=== PATIENT | female | born 1970 | race Caucasian/White ===

== ENCOUNTER 2024-05-22 08:55 | Emergency (ER) | payer OTHER ==
--- OUTSIDE RECORDS SUMMARY | 2024-05-22 08:58 | XMS REPORT | Continuity of Care Document ---
Author Name Unknown Address [address] [facility] [address] [place] [address] [facility] thconnect Address [address] [facility] [address] [place] [address] Care Team Providers Care Net Coordinator Name Role Phone PCP, PATIENT DOES NOT HAVE A Primary Care Physic tamara Unavailable JOSUE LINARES Attending Clinician Unavailable Josue Linares MD Attending Clinician [phone] MARANDA SUBRAMANIAN Attending Clinician Unavailable JOSUE LINARES Admitting Clinician Unavailable MARANDA SUBRAMANIAN Admitting Clinician Unavailable Payers Payer Name Policy Type Policy Number Effective Date Expirati on Date Source [employer] [id number] 2023 00:00:00 Allergies, Adverse Reactions, Alerts Allergy Name Allergy Type Status Severity Reaction(s) Onset Date Inactive Date Treating Clinician Comments Source ACETAMIN OPHEN DRUG INGREDI Active Rash 02-14 00:00: 00 [facility] Acetamin ophen Propensi ty to adverse reaction s Active Rash 02-14 00:00: 00 [facility] Social History Social Habit Start Date Stop Date Quantity Comments Source Sexual orientation U [facility] Sex Assigned At 1970 00:00:00 1970 00:00:00 [facility] Smoking Status Start Date Stop Date Source Tobacco smoking consumption unknown [facility] Medications Ordered Medication Name Filled Medication Name Start Date Stop Date Current Medication? Ordering Clinician Indication Dosage Frequency Signature (SIG) Comments Components Source aspirin chewable tablet 324 mg 06-20 04:15: 00 06-20 03:21 :00 No 324mg 324 mg, Oral, ONCE, 1 dose, On Thu06/19/23 at 2215, [facility] famotidine (PEPCID (PF)) injection 20 mg 06-20 04:15: 00 06-20 03:22 :00 No 20mg 20 mg, Slow IV Push, ONCE, 1 dose, On Thu06/19/23 at 2215, [facility] ketorolac (TORADOL) injection 15 mg 06-20 04:15: 00 06-20 03:24 :00 No 15mg 15 mg, Slow IV Push, ONCE, 1 dose, On Thu06/19/23 at 2215, [facility] maalox:diph enhydrAMINE :lidocaine 2 % viscous 1:1:1 ([facility]) oral suspension 15 mL 06-20 03:15: 00 06-20 03:21 :00 No 15mL 15 mL, Oral, ONCE, 1 dose, On Thu06/19/23 at 2115, Routine [facility] atorvastati n 20 mg tablet 06-19 00:00: 00 07-19 05:59 :00 No [id number] 20mg Take 1 tablet by mouth at bedtime for 30 days. [facility] losartan 50 mg tablet 06-19 00:00: 00 07-19 05:59 :00 No [id number] 50mg Take 1 tablet by mouth in the morning for 30 days. [facility] busPIRone 10 mg tablet 06-19 00:00: 00 07-19 05:59 :00 No [id number] 10mg Take 1 tablet by mouth in the morning and 1 tablet in the evening. Do all this for 30 days. [facility] famotidine 20 mg tablet 06-19 00:00: 00 07-05 05:59 :00 No [id number] 20mg Take 1 tablet by mouth in the morning and 1 tablet in the evening. Do all this for 15 days. [facility] Dextrometho rphan HBr 5 mg/5 mL Syrp 2022-05 00:00: 00 Yes [id number] 15mL Take 15 mL by mouth every 4 (four) hours as needed for Cough. [facility] methylPREDN ISolone 4 mg tablets 2022-05 00:00: 00 Yes [id number] Take by mouth SEE-INSTRU CTIONS. follow package directions [facility] LISINOPRIL ORAL 02-14 19:41: 20 Yes Take by mouth 2 (two) times daily. [facility] HYDROcodone -acetaminop hen (NORCO) 10-325 mg tablet 02-14 19:41: 20 Yes 1{tbl} Take 1 tablet by mouth every 8 (eight) hours as needed for Pain unrelieved by non-narcot ic analgesics . [facility] citalopram (CELEXA) 20 mg tablet 02-14 19:39: 48 Yes 20mg Take 20 mg by mouth daily. [facility] clonazePAM (KLONOPIN) 0.5 mg tablet 02-14 19:39: 17 Yes .5mg Take 0.5 mg by mouth 2 (two) times daily. [facility] proMETHazin e (PHENERGAN) 25 mg tablet 02-14 00:00: 00 Yes 25mg Take 1 tablet by mouth every 6 (six) hours as needed for Nausea and Vomiting (N/V). [facility] pentazocine -naloxone (TALWIN NX) 50-0.5 mg tablet 02-14 00:00: 00 Yes 1{tbl} Take 1 tablet by mouth every 4 (four) hours as needed for Pain for up to 20 doses. [facility] Vital Signs Vital Name Observation Time Observation Value Comments [facility]oe[facility] Systolic blood pressure 2023-06-20 05:52:46 159 mm[Hg] [facility] Diastolic blood pressure 2023-06-20 05:52:46 88 mm[Hg] [facility] Heart rate 2023-06-20 05:52:46 67 /min [facility] Respiratory rate 2023-06-20 05:52:46 18 /min [facility] Oxygen saturation in Arterial blood by Pulse oximetry 2023-06-20 05:52:46 99 /min [facility] Body temperature 2023-06-20 04:33:04 36.72 Melinda [facility] Body height 2023-06-20 02:30:00 149.9 cm [facility] Body weight 2023-06-20 02:30:00 44.453 kg [facility] BMI 2023-06-20 02:30:00 19.79 kg/m2 [facility] Systolic blood pressure 2023-04-04 21:31:00 150 mm[Hg] [facility] Diastolic blood pressure 2023-04-04 21:31:00 82 mm[Hg] [facility] Heart rate 2023-04-04 21:31:00 69 /min [facility] Body temperature 2023-04-04 21:31:00 36.72 Melinda [facility] Respiratory rate 2023-04-04 21:31:00 14 /min [facility] Body height 2023-04-04 21:31:00 149.9 cm [facility] Body weight 2023-04-04 21:31:00 44.453 kg [facility] BMI 2023-04-04 21:31:00 19.79 kg/m2 [facility] Oxygen saturation in Arterial blood by Pulse oximetry 2023-04-04 21:31:00 100 /min [facility] Procedures Procedure Date / Time Performed Performing Clinicia n Source TROPONIN I 2023-06-20 05:09:00 Josue Linares [facility] D-DIMER 2023-06-20 05:09:00 Josue Linares [facility] XR CHEST 2 VW 2023-06-20 03:19:00 Josue Linares [facility] LIPASE 2023-06-20 03:13:00 Josue Linares [facility] TROPONIN I 2023-06-20 03:13:00 Josue Linares [facility] HEPATIC FUNCTION PANEL (25249) (ALB,T.PRO,BILI T,BU/BC,ALT,AST,ALK PHOS) 2023-06-20 03:13:00 Josue Linares [facility] BASIC METABOLIC PANEL (NA, K, CL, CO2, GLUCOSE, BUN, CREATININE, CA) 2023-06-20 03:13:00 Josue Linares [facility] ETHANOL 2023-06-20 03:13:00 Josue Linares [facility] CBC WITH DIFF 2023-06-20 03:13:00 Josue Linares [facility] N-TERMINAL PRO-BNP 2023-06-20 03:13:00 Josue Linares [facility] ASSIGNMENT OF BENEFITS 2023-04-04 22:28:34 Docto r Unassigned, [place] [facility] BASIC METABOLIC PANEL (NA, K, CL, CO2, GLUCOSE, BUN, CREATININE, CA) 2023-04-04 21:48:00 Maranda Subramanian [facility] CBC WITH DIFF 2023-04-04 21:48:00 Maranda Subramanian [facility] RAPID STREP SCREEN FOR GROUP A 2023-04-04 21:48:00 Maranda Subramanian [facility] RAPID INFLUENZA A/B 2023-04-04 21:48:00 Manisha Subramanian [facility] POCT TEST 2023-04-04 21:48:00 Manisha Subramanian [facility] COVID-19 (ID NOW RAPID TESTING) 2023-04-04 21:48:00 Maranda Subramanian [facility] CONSENT/REFUSAL FOR DIAGNOSIS AND TREATMENT 2023-04-04 21:23:26 Doctor Unassigned, [place] [facility] Encounters Start Date/Time End Date/Time Encounter Type Admission Type Attending [facility] Facility Care Department Encounter ID Source 2023-06-19 20:33:00 2023-06-20 00:25:00 Emergency X JOSUE LINARES [facility] ERT [id number] [facility] 2023-06-19 20:33:00 2023-06-20 00:25:00 Emergency Josue Linares [facility] [id number] [facility] 2023-04-04 15:33:00 2023-04-04 17:32:00 Emergency X MARILYNN MARANDA [facility] ERT [id number] [facility] 2023-04-04 15:33:00 2023-04-04 17:32:00 Emergency MarilynnJoanMaranda [facility] [id number] [facility] Results Test Description Test Time Test Comments Results Result Comments Source XR CHEST 2 VW 03:38:30 Ordering physician:JOSUE LINARES CLINICAL HISTORY: ? ?chest pain TECHNIQUE: 2 views of the chest COMPARISON: ?None FINDINGS: No focal infiltrate, pleural effusion, or pneumothorax. Thecardiomediastinal silhouette is normal. The upper abdomen is unremarkable.No acute osseous abnormality. [facility]
--- NOTE | 2024-05-22 09:35 | EDPHYS ---
Physician Documentation [facility] Name: Lili Ryan Age: 53 yrs Sex: Female : 1970 Arrival Date: 05/22/2024 Time: 08:55 Bed 15 Private MD: MARICHUY Physician Grzegorz Gaitan HPI: 05/22 09:38 This 53 yrs old Female presents to ER via Ambulatory with complaints of Mouth dr5 Problem. 09:38 The patient presents with broken tooth/teeth, pain, redness, swelling. The problem is dr5 located in the upper left cuspid, upper left first bicuspid, upper left second bicuspid and upper left first molar. 09:38 Onset: The symptoms/episode began/occurred 3 day(s) ago. Patient is a 53-year-old dr5 female with hypertension, anxiety, seizure disorder coming in with 3 days of dental pain. Patient reports she went to the dentist but they were unable to work on her teeth due to her uncontrolled hypertension. Patient currently has medications for losartan and carvedilol. Patient has been taking 60 mg of ibuprofen with no pain relief.. Historical: - Allergies: 09:20 Tylenol; ha1 - PMHx: 09:20 Hypertensive disorder; Anxiety; Depressive disorder; Seizure; ha1 - Immunization history:: Adult Immunizations up to date. - Infectious Disease History:: Denies. - Social history:: Smoking status: Patient reports the use of cigarette tobacco products, unknown amount. ROS: 09:38 Constitutional: as per hpi dr5 Exam: 09:38 Constitutional: This is a well developed, well nourished patient who is awake, alert, dr5 and in no acute distress. Head/Face: Normocephalic, atraumatic. Eyes: Pupils equal round and reactive to light, extra-ocular motions intact. Lids and lashes normal. Conjunctiva and sclera are non-icteric and not injected. Cornea within normal limits. Periorbital areas with no swelling, redness, or edema. Chest/axilla: Normal chest wall appearance and motion. Nontender with no deformity. No lesions are appreciated. Cardiovascular: Regular rate and rhythm with a normal S1 and S2. Normal PMI, no JVD. No pulse deficits. Respiratory: Lungs have equal breath sounds bilaterally, clear to auscultation. No rales, rhonchi or wheezes noted. No increased work of breathing, no retractions or nasal flaring. Back: No spinal tenderness. No costovertebral tenderness. Full range of motion. MS/ Extremity: Pulses equal, no cyanosis. Neurovascular intact. Full, normal range of motion. Neuro: Awake and alert, GCS 15, oriented to person, place, time, and situation. Cranial nerves II-XII grossly intact. Motor strength 5/5 in all extremities. Sensory grossly intact. Cerebellar exam normal. Normal gait. 09:38 ENT: Mouth: Lips: normal, Oral mucosa: normal, Gums: normal with healthy appearance, reddened, Tongue: is normal, abscess, that is minimal, of the upper left cuspid, upper left first bicuspid, upper left second bicuspid, upper left first molar and upper left second molar, Multiple dental caries noted, rotting teeth. No trismus. Patient is handling secretions without difficulty. No trismus noted. Speaking in full sentences., Vital Signs: 09:19 BP 161 / 90; Pulse 80; Resp 16; Temp 98; Pulse Ox 100% ; ha1 MDM: 09:04 Medical Screening Exam initiated dr5 :38 Differential diagnosis: dental caries, gingivitis, dental abscess. Data reviewed: vital dr5 signs, nurses notes. Historians other than the Patient: Parent: Father at Bedside. Care significantly affected by the following chronic conditions: Hypertension, Seizure Disorder. Care significantly affected by the following Social Determinants of Health: Poor access to healthcare and/or lack of insurance, Poor access to transportation, Problems related to employment. Counseling: I had a detailed discussion with the patient and/or guardian regarding the historical points, exam findings, and any diagnostic results supporting the discharge/admit diagnosis, the presence of at least one elevated blood pressure reading (>120/80) during this emergency department visit, the need for outpatient follow up, for definitive care, a dentist, a family practitioner, to return to the emergency department if symptoms worsen or persist or if there are any questions or concerns that arise at home. ED course: Patient given 1 tramadol in ER. Will send patient home with Augmentin and pain medication. Recommended patient take blood pressure medications and pain medication prior to go to dentist for blood pressure control so they can work on her teeth without issues. Patient verbalized understanding and all questions answered.. Administered Medications: 10:11 Drug: traMADol PO 50 mg PO once Route: PO; kc6 10:25 Follow up: Response: No adverse reaction kc6 10:11 Drug: Ketorolac IM 30 mg IM once Route: IM; Site: right deltoid; kc6 10:25 Follow up: Response: No adverse reaction kc6 Disposition Summary: 05/22/24 09:34 Discharge Ordered Notes: Location: Home dr5 Condition: Stable dr5 Diagnosis - Dental caries, unspecified dr5 Followup: dr5 - With: Emergency Department - When: As needed - Reason: Worsening of condition Followup: dr5 - With: Private Physician - When: 1 - 2 days - Reason: Recheck today's complaints, Continuance of care, Re-evaluation by your physician Discharge Instructions: - Discharge Summary Sheet dr5 - Dental Abscess dr5 - Dental Caries, Adult dr5 Forms: - Medication Reconciliation Form dr5 - Antibiotic Education dr5 - Prescription Opioid Use dr5 - Patient Portal Instructions dr5 - Leadership Thank You Letter dr5 Prescriptions: - Augmentin 875-125 mg Oral Tablet - take 1 tablet ORAL route every 12 hours for 10 days; 20 tablet; Refills: 0, dr5 Product Selection Permitted - Tramadol 50 mg Oral Tablet - take 1 tablet ORAL route every 8 hours as needed; 12 tablet; Refills: 0, dr5 Product Selection Permitted Addendum: 05/24/2024 15:34 Co-signature as Attending Physician, Grzegorz Gaitan MD I agree with the assessment and c spencer plan of care. Signatures: Grzegorz Gaitan MD MD cha Ayala, Heidy, RN RN ha1 Wendy Moreno RN RN kc6 Shane Esparza, WORKDAY FINANCIALS CONSULTANT-C WORKDAY FINANCIALS CONSULTANT-Cdr5
--- NOTE | 2024-05-22 09:35 | ER ---
Nurse's Notes [facility] Name: Lili Ryan Age: 53 yrs Sex: Female : 1970 Arrival Date: 05/22/2024 Time: 08:55 Bed 15 Private MD: Diagnosis: Dental caries, unspecified Presentation: 05/22 09:19 Chief complaint: Patient states: 3 DAYS LEFT TOOTH PAIN. SEEN AT DENTIST, BUT NO ha1 PROCEDURE 2/2 HTN. Coronavirus screen: At this time, the client does not indicate any symptoms associated with coronavirus-19. Ebola Screen: No symptoms or risks identified at this time. Initial Sepsis Screen: Does the patient meet any 2 criteria? No. Patient's initial sepsis screen is negative. Does the patient have a suspected source of infection? No. Patient's initial sepsis screen is negative. Risk Assessment: Do you want to hurt yourself or someone else? Patient reports no desire to harm self or others. Onset of symptoms is unknown. 09:19 Method Of Arrival: Ambulatory ha1 09:19 Acuity: HOLLEY 4 ha1 Triage Assessment: 09:20 General: Appears in no apparent distress. uncomfortable, Behavior is cooperative, ha1 appropriate for age, anxious. Pain: Complains of pain in face. Historical: - Allergies: 09:20 Tylenol; ha1 - PMHx: 09:20 Hypertensive disorder; Anxiety; Depressive disorder; Seizure; ha1 - Immunization history:: Adult Immunizations up to date. - Infectious Disease History:: Denies. - Social history:: Smoking status: Patient reports the use of cigarette tobacco products, unknown amount. Vital Signs: 09:19 BP 161 / 90; Pulse 80; Resp 16; Temp 98; Pulse Ox 100% ; ha1 ED Course: 09:00 Patient arrived in ED. sj2 09:01 Shane Esparza FNP-C [facility]. dr5 09:01 Grzegorz Gaitan MD is Attending Physician. dr5 09:20 Triage completed. ha1 09:21 Arm band placed on. ha1 10:05 Wendy Moreno RN is Primary Nurse. kc6 Administered Medications: 10:11 Drug: traMADol PO 50 mg PO once Route: PO; kc6 10:25 Follow up: Response: No adverse reaction kc6 10:11 Drug: Ketorolac IM 30 mg IM once Route: IM; Site: right deltoid; kc6 10:25 Follow up: Response: No adverse reaction kc6 Outcome: 09:34 Discharge ordered by . hreiberto 10:25 Discharged to home ambulatory, with family, kc6 10:25 Condition: good 10:25 Discharge instructions given to patient, Instructed on discharge instructions, follow up and referral plans. no drinking with medication, no driving heavy equipment, medication usage, Demonstrated understanding of instructions, follow-up care, medications, Prescriptions given X 2, 10:26 Patient left the ED. kc6 Signatures: Lindsay Moss RN RN ha1 Wendy Moreno RN RN kc6 Loyda Sorto Dustin, CONFERENCE SPECIALIST-C CONFERENCE SPECIALIST-Cdr5
[2024-05-22] MEDS ORDERED: TRAMADOL HCL 50 MG TAB ONE (10:06)
[2024-05-22] MEDS ORDERED: KETOROLAC 30 MG/ML INJ ONE (10:06)
[2024-05-22 10:42] VITALS: BP 161/90; TEMP 98; O2SAT 100
== END 2024-05-22 10:26 | disposition home or self-care (01) ==
LOC: ER 08:55
DX: K02.9 Dental caries, unspecified (principal)
CPT/HCPCS: 96372; 99284

== ENCOUNTER 2024-06-18 12:20 | Emergency (ER) | payer OTHER ==
--- OUTSIDE RECORDS SUMMARY | 2024-06-18 12:23 | XMS REPORT | Continuity of Care Document ---
Author Name Unknown Address [address] [facility] [place] [address] [facility] Address [address] [facility] [address] [place] [address] Care Team Providers Care Racing Driver Name Role Phone PCP, PATIENT DOES NOT HAVE A Primary Care Physic tamara Unavailable JOSUE LINARES Attending Clinician Unavailable Josue Linares MD Attending Clinician [phone] MARANDA SUBRAMANIAN Attending Clinician Unavailable JOSUE LINARES Admitting Clinician Unavailable MARANDA SUBRAMANIAN Admitting Clinician Unavailable Payers Payer Name Policy Type Policy Number Effective Date Expirati on Date Source [employer] [id number] 2023 00:00:00 Allergies, Adverse Reactions, Alerts Allergy Name Allergy Type Status Severity Reaction(s) Onset Date Inactive Date Treating Clinician Comments Source ACETAMIN OPHEN DRUG INGREDI Active Rash 02-14 00:00: 00 [facility] Acetamin ophen Propensi ty to adverse reaction s Active Rash 02-14 00:00: 00 [facility] Social History Social Habit Start Date Stop Date Quantity Comments Source Sexual orientation U [facility] Sex Assigned At 1970 00:00:00 1970 00:00:00 [facility] Smoking Status Start Date Stop Date Source Tobacco smoking consumption unknown [facility] Medications Ordered Medication Name Filled Medication Name Start Date Stop Date Current Medication? Ordering Clinician Indication Dosage Frequency Signature (SIG) Comments Components Source aspirin chewable tablet 324 mg 06-20 04:15: 00 06-20 03:21 :00 No 324mg 324 mg, Oral, ONCE, 1 dose, [facility]19[facility]23 [facility] 2215[facility] famot[facility] (PEPCID (PF[facility] injection 20 mg 06-20 04:15: 00 06-20 03:22 :00 No 20mg 20 mg, Slow IV Push, ONCE, 1 dose, On Thu06/19/23 at 2215, [facility] ketorolac (TORADOL) injection 15 mg 06-20 04:15: 00 06-20 03:24 :00 No 15mg 15 mg, Slow IV Push, ONCE, 1 dose, On Thu06/19/23 at 2215, [facility] maalox:diph enhydrAMINE :lidocaine 2 % viscous 1:1:1 (FIRST-MOUT HWASH BLM) oral suspension 15 mL 06-20 03:15: 00 06-20 03:21 :00 No 15mL 15 mL, Oral, ONCE, 1 dose, On Thu06/19/23 at 2115, Routine [facility] atorvastati n 20 mg tablet 06-19 00:00: 00 07-19 05:59 :00 No [id number] 20mg Take 1 tablet by mouth at bedtime for 30 days. [facility] losartan 50 mg tablet 06-19 00:00: 00 07-19 05:59 :00 No [id number] 50mg Take 1 tablet by mouth in the morning for 30 days. [facility] busPIRone 10 mg tablet 06-19 00:00: 00 07-19 05:59 :00 No [id number] 10mg Take 1 tablet by mouth in the morning and 1 tablet in the evening. Do all this for 30 days. [facility] famotidine 20 mg tablet 06-19 00:00: 00 07-05 05:59 :00 No [id number] 20mg Take 1 tablet by mouth in the morning and 1 tablet in the evening. Do all this for 15 days. [facility] Dextrometho rphan HBr 5 mg/5 mL Syrp 2022-05 00:00: 00 Yes [id number] 15mL Take 15 mL by mouth every 4 (four) hours as needed for Cough. [facility] methylPREDN ISolone 4 mg tablets 2022-05 00:00: 00 Yes [id number] Take by mouth SEE-INSTRU CTIONS. follow package directions [facility] LISINOPRIL ORAL 02-14 19:41: 20 Yes Take by mouth 2 (two) times daily. [facility] HYDROcodone -acetaminop hen (NORCO) 10-325 mg tablet 02-14 19:41: 20 Yes 1{tbl} Take 1 tablet by mouth every 8 (eight) hours as needed for Pain unrelieved by non-narcot ic analgesics . [facility] citalopram (CELEXA) 20 mg tablet 02-14 19:39: 48 Yes 20mg Take 20 mg by mouth daily. [facility] clonazePAM (KLONOPIN) 0.5 mg tablet 02-14 19:39: 17 Yes .5mg Take 0.5 mg by mouth 2 (two) times daily. [facility] proMETHazin e (PHENERGAN) 25 mg tablet 02-14 00:00: 00 Yes 25mg Take 1 tablet by mouth every 6 (six) hours as needed for Nausea and Vomiting (N/V). [facility] pentazocine -naloxone (TALWIN NX) 50-0.5 mg tablet 02-14 00:00: 00 Yes 1{tbl} Take 1 tablet by mouth every 4 (four) hours as needed for Pain for up to 20 doses. [facility] Vital Signs Vital Name Observation Time Observation Value Comments [facility]ley mattnj Systolic blood pressure 2023-06-20 05:52:46 159 mm[Hg] [facility] Diastolic blood pressure 2023-06-20 05:52:46 88 mm[Hg] [facility] Heart rate 2023-06-20 05:52:46 67 /min [facility] Respiratory rate 2023-06-20 05:52:46 18 /min [facility] Oxygen saturation in Arterial blood by Pulse oximetry 2023-06-20 05:52:46 99 /min [facility] Body temperature 2023-06-20 04:33:04 36.72 Melinda [facility] Body height 2023-06-20 02:30:00 149.9 cm [facility] Body weight 2023-06-20 02:30:00 44.453 kg [facility] BMI 2023-06-20 02:30:00 19.79 kg/m2 [facility] Systolic blood pressure 2023-04-04 21:31:00 150 mm[Hg] [facility] Diastolic blood pressure 2023-04-04 21:31:00 82 mm[Hg] [facility] Heart rate 2023-04-04 21:31:00 69 /min [facility] Body temperature 2023-04-04 21:31:00 36.72 Melinda [facility] Respiratory rate 2023-04-04 21:31:00 14 /min [facility] Body height 2023-04-04 21:31:00 149.9 cm [facility] Body weight 2023-04-04 21:31:00 44.453 kg [facility] BMI 2023-04-04 21:31:00 19.79 kg/m2 [facility] Oxygen saturation in Arterial blood by Pulse oximetry 2023-04-04 21:31:00 100 /min [facility] Procedures Procedure Date / Time Performed Performing Clinicia n Source TROPONIN I 2023-06-20 05:09:00 Josue Linares [facility] D-DIMER 2023-06-20 05:09:00 Josue Linares [facility] XR CHEST 2 VW 2023-06-20 03:19:00 [facility] 2023-06-20 03:13:00 oJsue Linares [facility] TROPONIN I 2023-06-20 03:13:00 Josue Linares [facility] HEPATIC FUNCTION PANEL (24844) (ALB,T.PRO,BILI T,BU/BC,ALT,AST,ALK PHOS) 2023-06-20 03:13:00 Josue Linares [facility] BASIC METABOLIC PANEL (NA, K, CL, CO2, GLUCOSE, BUN, CREATININE, CA) 2023-06-20 03:13:00 Josue Linares [facility] ETHANOL 2023-06-20 03:13:00 Josue Linares [facility] CBC WITH DIFF 2023-06-20 03:13:00 Josue Linares [facility] N-TERMINAL PRO-BNP 2023-06-20 03:13:00 Josue Linares [facility] ASSIGNMENT OF BENEFITS 2023-04-04 22:28:34 Docto r Unassigned, [place] [facility] BASIC METABOLIC PANEL (NA, K, CL, CO2, GLUCOSE, BUN, CREATININE, CA) 2023-04-04 21:48:00 Maranda Subramanian [facility] CBC WITH DIFF 2023-04-04 21:48:00 Maranda Subramanian [facility] RAPID STREP SCREEN FOR GROUP A 2023-04-04 21:48:00 Maranda Subramanian [facility] RAPID INFLUENZA A/B 2023-04-04 21:48:00 Manisha Subramanian [facility] POCT TEST 2023-04-04 21:48:00 Manisha Subramanian [facility] COVID-19 (ID NOW RAPID TESTING) 2023-04-04 21:48:00 Maranda Subramanian [facility] CONSENT/REFUSAL FOR DIAGNOSIS AND TREATMENT 2023-04-04 21:23:26 Doctor Unassigned, [place] [facility] Encounters Start Date/Time End Date/Time Encounter Type Admission Type Attending [facility] Care Facility Care Department Encounter ID Source 2023-06-19 20:33:00 2023-06-20 00:25:00 Emergency X JOSUE LINARES [facility] ERT [id number] [facility] 2023-06-19 20:33:00 2023-06-20 00:25:00 Emergency Josue Linares [facility] [id number] [facility] 2023-04-04 15:33:00 2023-04-04 17:32:00 Emergency X MARILYNNMARANDA Giraldo [facility] ERT [id number] [facility] 2023-04-04 15:33:00 2023-04-04 17:32:00 Emergency Marilynn, Maranda [facility] [id number] [facility] Results Test Description Test Time Test Comments Results Result Comments Source XR CHEST 2 VW 03:38:30 Ordering physician:JOSUE LINARES CLINICAL HISTORY: ? ?chest pain TECHNIQUE: 2 views of the chest COMPARISON: ?None FINDINGS: No focal infiltrate, pleural effusion, or pneumothorax. Thecardiomediastinal silhouette is normal. The upper abdomen is unremarkable.No acute osseous abnormality. [facility]
[2024-06-18] MEDS ORDERED: ALBUTEROL 2.5 MG/3 ML NEB SOL ONE (12:46)
[2024-06-18] MEDS ORDERED: HYDROCODONE/CHLORPHEN 5 ML/OSYR ONE (12:46)
[2024-06-18] MEDS ORDERED: IPRATROPIUM BROM 0.5MG/2.5ML ONE (12:46)
--- NOTE | 2024-06-18 13:40 | RAD REPORT ---
EXAMINATION: TWO VIEW CHEST XR CLINICAL INDICATION: Female, 53 years old. [facility] MAIN COUGH Bed:IW2 TECHNIQUE: 2 view radiographs of the chest were performed. COMPARISON: No prior exam. FINDINGS: The lungs are well inflated and clear. No pneumothorax or sizable effusion. The heart is normal in si ze. Mediastinal contours are unremarkable. IMPRESSION: No acute or significant abnormalities.
[2024-06-18 13:47] LABS: Specific Gravity 1.023 (1.005-1.030); Sqamous Epithelial <5 /HPF (None Seen); Urine Bacteria None Seen /HPF (<20); Urine Bilirubin NEGATIVE (Negative); Urine Blood Negative (Negative); Urine Clarity Turbid (Clear); Urine Color Light-Yellow (Yellow); Urine Culture Reflex Order NOT NEEDED; Urine Glucose NEGATIVE (Negative); Urine Ketones NEGATIVE (Negative); Urine Microscopic Reflex YN ORDER UMIC; Urine Mucus Slight /HPF (None Seen); Urine Nitrite NEGATIVE (Negative); Urine Protein TRACE (Negative); Urine RBC <5 /HPF (None Seen); Urine Urobilinogen 1+ (Normal); Urine WBC <5 /HPF (<5)
[2024-06-18 13:48] LABS: Specific Gravity 1.023 (1.005-1.030)
[2024-06-18 13:51] LABS: SARS-CoV-2 Antigen CONTROL BLUE LINE VIS/BG OK; SARS-CoV-2 Antigen Rapid Res Negative (Negative)
--- NOTE | 2024-06-18 14:46 | EDPHYS ---
Physician Documentation [facility] Name: Lili Ryan Age: 53 yrs Sex: Female : 1970 Arrival Date: 06/18/2024 Time: 12:20 Bed 12 Private MD: ED Physician Andriy Mccoy HPI: 06/18 12:40 This 53 yrs old Female presents to ER via Ambulatory with complaints of Shortness Of cp Breath. 12:40 The patient has shortness of breath with light activity, with cough. cp 12:40 Onset: The symptoms/episode began/occurred yesterday, and became worse today. Duration: cp The symptoms are continuous. Associated signs and symptoms: Pertinent negatives: chest pain, diaphoresis, dizziness, fever, hemoptysis. Severity of symptoms: in the emergency department the symptoms are unchanged despite home interventions. 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 - Infectious Disease History:: Denies. - Social history:: Smoking status: Patient reports the use of cigarette tobacco products, smokes one-half pack cigarettes per day. ROS: 12:45 Respiratory: Positive for shortness of breath, cp 12:45 Constitutional: Positive for body aches, chills, Negative for fever, poor PO intake, cp 12:45 Eyes: Negative for injury, pain, redness, and discharge, cp 12:45 ENT: Positive for sore throat, Negative for drainage from ear(s), ear pain, difficulty swallowing, difficulty handling secretions, 12:45 Cardiovascular: Negative for chest pain, 12:45 Abdomen/GI: Negative for abdominal pain, vomiting, diarrhea, constipation, 12:45 Neuro: Negative for altered mental status, weakness, 12:45 All other systems are negative, Exam: 12:50 Constitutional: The patient appears in no acute distress, alert, awake, cp non-diaphoretic, non-toxic, well developed, well nourished, 12:50 Head/Face: Normocephalic, atraumatic. cp 12:50 Eyes: Periorbital structures: appear normal, Conjunctiva: normal, no exudate, no injection, Sclera: no appreciated abnormality, Lids and lashes: appear normal, bilaterally, 12:50 ENT: External ear(s): are unremarkable, Ear canal(s): are normal, clear, TM's: dullness, bilaterally, Nose: is normal, Mouth: Lips: moist, Oral mucosa: moist, Posterior pharynx: Airway: no evidence of obstruction, patent, 12:50 Neck: ROM/movement: Meningeal signs: are not present, Lymph nodes: no appreciated lymphadenopathy, 12:50 Chest/axilla: Inspection: normal, 12:50 Cardiovascular: Rate: tachycardic, Rhythm: regular, Edema: is not appreciated, JVD: is not appreciated, 12:50 Respiratory: the patient does not display signs of respiratory distress, Respirations: labored breathing, is not present, intercostal retractions, are absent, shallow respirations, are not present, Breath sounds: decreased breath sounds, are not appreciated, stridor, is not appreciated, wheezing: is not appreciated, 12:50 Abdomen/GI: Inspection: abdomen appears normal, Palpation: abdomen is soft and non-tender, in all quadrants, 12:50 Skin: no rash present. 12:50 Neuro: Orientation: to person, place \T\ time. Mentation: is normal, Motor: moves all fours, strength is normal, Sensation: is normal, Vital Signs: 12:32 BP 159 / 75; Pulse 105; Resp 20; Temp 98.4(O); Pulse Ox 100% ; Weight 48.53 kg; Height cm10 4 ft. 11 in. ; Pain 9/10; 12:32 Body Mass Index 21.61 (48.53 kg, 149.86 cm) cm10 12:32 Pain Scale: Adult cm10 MDM: 14:45 Medical Screening Exam initiated cp 14:45 Data reviewed: vital signs, nurses notes, lab test result(s), radiologic studies, plain cp films, and as a result, I will discharge patient. 14:45 Differential diagnosis: Bronchitis pneumonia, Sepsis. I considered the following cp discharge prescriptions or medication management in the emergency department Medications were administered in the Emergency Department. See MAR. Independent interpretation of the following test(s) in the Emergency Department X-Ray: My interpretation is chest images negative for pneumonia. Counseling: I had a detailed discussion with the patient and/or guardian regarding the historical points, exam findings, and any diagnostic results supporting the discharge/admit diagnosis, lab results, radiology results, to return to the emergency department if symptoms worsen or persist or if there are any questions or concerns that arise at home. Response to treatment: the patient's symptoms have mildly improved after treatment, and as a result, I will discharge patient. 06/18 12:35 Order name: Strep 06/18 12:35 Order name: SARS RAPID; Complete Time: 14:11 06/18 12:35 Order name: RSV; Complete Time: 14:11 06/18 12:35 Order name: Influenza Screen (a \T\ B); Complete Time: 14:11 06/18 12:35 Order name: Urinalysis w/ reflexes; Complete Time: 14:11 06/18 14:11 Interpretation: Normal except: [facility] Turbid; UPROT TRACE; UUROB 1+; UESTR 25. 06/18 12:35 Order name: Test, Urine; Complete Time: 14:11 06/18 13:54 Order name: Throat Culture [facility] 06/18 12:35 Order name: XRAY Chest Pa And Lat (2 Views); Complete Time: 13:46 06/18 13:46 Interpretation: Report reviewed. cp Administered Medications: 12:57 Drug: Tussionex Pennkinetic ER PO Suspension 5 ml PO once Route: PO; hb 14:56 Follow up: Response: No adverse reaction ap3 12:57 Drug: Albuterol Inhalation 2.5 mg Inhalation once Route: Inhalation; hb 12:57 Drug: Ipratropium Inhalation Aerosol 0.5 mg Inhalation once Route: Inhalation; hb 14:56 Follow up: Response: No adverse reaction ap3 Disposition: 06/19 07:49 Co-signature as Attending Physician, Andriy Mccoy MD I reviewed the patient's care rn provided by the Advanced Practice Provider and agree with the diagnosis and treatment plan. Disposition Summary: 06/18/24 14:45 Discharge Ordered Notes: Location: Home cp Problem: new cp Symptoms: have improved cp Condition: Stable cp Diagnosis - Influenza due to unidentified influenza virus with other respiratory manifestations cp Followup: cp - With: Private Physician - When: 2 - 3 days - Reason: Worsening of condition Discharge Instructions: - Discharge Summary Sheet cp - Influenza, Adult cp Forms: - Medication Reconciliation Form cp - Antibiotic Education cp - Prescription Opioid Use cp - Patient Portal Instructions cp - Leadership Thank You Letter cp Prescriptions: - Bromfed DM 2-30-10 mg/5 mL Oral syrup - administer 7.5 milliliter ORAL route every 6 hours as needed for cold symptoms; cp 180 milliliter; Refills: 0, Product Selection Permitted - Zofran 4 mg Oral tablet - take 1 tablet ORAL route every 12 hours As needed; 10 tablet; Refills: 0, cp Product Selection Permitted - Zithromax Z-Yuniel 250 mg Oral Tablet - take 1 tablet ORAL route as directed for 5 days Day 1 - take two (2) tablets cp one time. Day 2, 3, 4 , 5 take one (1) tablet once daily.; 6 tablet; Refills: 0, Product Selection Permitted - Tamiflu 75 mg Oral capsule - take 1 tablet ORAL route every 12 hours for 5 days; 10 tablet; Refills: 0, cp Product Selection Permitted Signatures: Dispatcher [employer] EDMS Andriy Mccoy MD MD rn Page, Corey, PA PA cp Baxter, Heather RN RN Isamar Carrero RN RN cm10 Batsheva Alvarado RN ap3
--- NOTE | 2024-06-18 14:46 | ER ---
Nurse's Notes [facility] Name: Lili Ryan Age: 53 yrs Sex: Female : 1970 Arrival Date: 06/18/2024 Time: 12:20 Bed 12 Private MD: Diagnosis: Influenza due to unidentified influenza virus with other respiratory manifestations Presentation: 06/18 12:32 Chief complaint: Patient states: Cough, sore throat and shortness of breath onset cm10 yesterday. Coronavirus screen: Client denies travel out of the [place] in the last 14 days. Ebola Screen: Patient denies travel to an Ebola-affected area in the 21 days before illness onset. Initial Sepsis Screen: Does the patient meet any 2 criteria? HR > 90 bpm. Does the patient have a suspected source of infection? No. Patient's initial sepsis screen is negative. Risk Assessment: Do you want to hurt yourself or someone else? Patient reports no desire to harm self or others. Onset of symptoms was June 17, 2024. 12:32 Method Of Arrival: Ambulatory cm10 12:32 Acuity: HOLLEY 3 cm10 Triage Assessment: 12:34 General: Appears in no apparent distress. uncomfortable, Behavior is calm, cooperative. cm10 Respiratory: No deficits noted. Reports shortness of breath cough that is pain with cough. 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 - Infectious Disease History:: Denies. - Social history:: Smoking status: Patient reports the use of cigarette tobacco products, smokes one-half pack cigarettes per day. Screenin:59 [facility] ED Fall Risk Assessment (Adult) History of falling in the last 3 months, hb including since admission No falls in past 3 months (0 pts) Confusion or Disorientation No (0 pts) Intoxicated or Sedated No (0 pts) Impaired Gait No (0 pts) Mobility Assist Device Used No (0 pt) Altered Elimination No (0 pt) Score/Fall Risk Level 0 - 2 = Low Risk Oriented to surroundings, Maintained a safe environment, Educated pt \T\ family on fall prevention, incl call for assistance when getting out of bed. Abuse screen: Denies threats or abuse. Denies injuries from another. Nutritional screening: No deficits noted. Tuberculosis screening: No symptoms or risk factors identified. Assessment: 12:58 General: Appears in no apparent distress. Behavior is calm, cooperative. Pain: Pain hb currently is 9 out of 10 on a pain scale. Neuro: GCS 15. Cardiovascular: Patient's skin is warm and dry. Respiratory: Reports shortness of breath at rest on exertion cough that is non-productive, Airway is patent Respiratory effort is even, unlabored, Respiratory pattern is regular, symmetrical. EENT: Reports sore throat. Vital Signs: 12:32 BP 159 / 75; Pulse 105; Resp 20; Temp 98.4(O); Pulse Ox 100% ; Weight 48.53 kg; Height cm10 4 ft. 11 in. ; Pain 9/10; 12:32 Body Mass Index 21.61 (48.53 kg, 149.86 cm) cm10 12:32 Pain Scale: Adult cm10 ED Course: 12:22 Patient arrived in ED. ra3 12:26 Grzegorz Garcia PA is PHCP. cp 12:26 Andriy Mccoy MD is Attending Physician. cp 12:33 Triage completed. cm10 12:34 Arm band placed on right wrist. Patient placed in an exam room. cm10 12:57 Patient has correct armband on for positive identification. Bed in low position. Call hb light in reach. Provided Education on: tests, result times, medications, use of call light . 12:57 Influenza Screen (a \T\ B) Sent. hb 12:57 Strep Sent. hb 12:57 RSV Sent. hb 12:57 SARS RAPID Sent. hb 12:57 No provider procedures requiring assistance completed. Patient did not have IV access hb during this emergency room visit. 13:06 XRAY Chest Pa And Lat (2 Views) In Process Unspecified. EDMS Administered Medications: 12:57 Drug: Tussionex Pennkinetic ER PO Suspension 5 ml PO once Route: PO; hb 14:56 Follow up: Response: No adverse reaction ap3 12:57 Drug: Albuterol Inhalation 2.5 mg Inhalation once Route: Inhalation; hb 12:57 Drug: Ipratropium Inhalation Aerosol 0.5 mg Inhalation once Route: Inhalation; hb 14:56 Follow up: Response: No adverse reaction ap3 Medication: 12:59 VIS not applicable for this client. Outcome: 14:45 Discharge ordered by . cp 14:57 Discharged to home ambulatory, with family, ap3 14:57 Condition: good 14:57 Discharge instructions given to patient, family, Instructed on discharge instructions, follow up and referral plans. medication usage, Demonstrated understanding of instructions, follow-up care, medications, Prescriptions given X 4, 14:57 Patient left the ED. ap3 Signatures: Dispatcher [employer] EDMS Grzegorz Garcia PA PA cp Christi Farrar, RN RN Batsheva Alvarado RN RN ap3 Isamar Carrero RN RN 10 Arlyn Pérez 3
[2024-06-18 15:30] VITALS: BP 159/75; TEMP 98.4; O2SAT 100
== END 2024-06-18 14:57 | disposition home or self-care (01) ==
LOC: ER 12:20
DX: J11.1 Influenza due to unidentified influenza virus with other respiratory manifestations (principal); F17.210 Nicotine dependence, cigarettes, uncomplicated; Z11.52 Encounter for screening for COVID-19
CPT/HCPCS: 87070; 81001; 36415; 81025; 87081; 87807; 87804 ×2; 71046; 99284; 87811; J7613; J7644